=== PATIENT | male | born 1950 | race Caucasian/White ===

== ENCOUNTER 2017-07-19 09:12 | Emergency (ER) | payer SELFPAY ==
[~2017-07-19] VITALS: Ht 182.9 cm; Wt 95.2 kg
[2017-07-19 10:51] LABS: ALBUMIN SERUM 4.1 g/dL (3.5-5.0); ALCOHOL BLOOD <5 mg/dL ([, 0]); ALKALINE PHOSPHATASE 49 U/L (32-92); ALT (SGPT) 20 U/L (10-40); AST (SGOT) 26 U/L (10-42); BILIRUBIN,TOTAL 1.4 mg/dL (0.2-2.0); BLOOD UREA NITROGEN 25 mg/dL (9-23); BUN/CREATININE RATIO 27.77; CALCIUM SERUM 8.8 mg/dL (8.4-10.2); CARBON DIOXIDE 28 mmol/L (22-31); CHLORIDE 100 mmol/L (100-111); CREATININE SERUM 0.9 mg/dL (0.6-1.4); GLOM FILT RATE Estimated 89.3 mL/min (>60); GLUCOSE FASTING 114 mg/dL (70-110); POTASSIUM 3.9 mmol/L (3.5-5.1); SODIUM 137 mmol/L (135-145)
[2017-07-19 10:54] LABS: BASOPHIL# 0.1 X10e3 (0-0.3); BASOPHIL% 0.8 % (0-2.5); EOSINOPHIL# 0.1 X10e3 (0-0.7); EOSINOPHIL% 1.2 % (0.0-7.0); HEMATOCRIT 42.2 % (38.0-50.0); HEMOGLOBIN 14.4 gm/dL (13.0-16.0); LYMPHOCYTE# 1.9 X10e3 (1.0-3.5); LYMPHOCYTE% 18.9 % (17.0-45.0); MEAN CORPUSCULAR HEMOGLOBIN 32.8 PG (28-34); MEAN CORPUSCULAR HGB CONC 34.2 g/dL (30-36); MEAN PLATELET VOLUME 10.1 FL (6.5-11.5); MONOCYTE# 1.1 X10e3 (0-1.0); MONOCYTE% 10.9 % (3.0-12.0); NEUTROPHIL# 6.8 X10e3 (1.5-7.1); NEUTROPHIL% 68.2 % (40-75); PLATELET COUNT 161 X10e3 (140-420)
[2017-07-19 10:55] LABS: DIFF IND NO
[2017-07-19 11:02] LABS: AMPHETAMINE NEG (NEG); BARBITURATES NEG (NEG); BENZODIAZEPINES NEG (NEG); COCAINE NEG (NEG); MARIJUANA NEG (NEG); OPIATES NEG (NEG); TRICYCLIC ANTIDEPRESSANTS NEG (NEG); U METHADONE NEG (NEG)
== END 2017-07-19 13:20 | disposition short-term general hospital (02) ==
LOC: CED 09:12
PROVIDERS: Emergency Medicine
DX: F32.9 Major depressive disorder, single episode, unspecified (principal); F17.200 Nicotine dependence, unspecified, uncomplicated
CPT/HCPCS: 36415; 80053; 80307; 85025; 99285; G0480